=== PATIENT | female | born 1985 | race Caucasian/White ===

== ENCOUNTER → 2016-06-24 | Outpatient (CLI) | payer BC ==
[~2016-06-24] VITALS: Ht 162.6 cm; Wt 61.2 kg
[~2016-06-24] MED LIST: DICY10SO PO; EMOQTAB PO; LIDOCAINE 2% INJ 100 MG/5 ML SDV (FOR ANES.) As Ordered ONE; NS 1,000 ML IV SCH; PROPOFOL 200 MG/20 ML VIAL As Ordered ONE
--- NOTE | 2016-06-24 09:14 | ROOR ---
Patient Name: Elayne Meza Procedure Date: 06/24/2016 8:53 AM Date of : 1985 Age: 31 Room: [id number] Gender: Female Note Status: Finalized Procedure: Colonoscopy Indications: Generalized abdominal pain, Exclusion of ulcerative colitis, Suspected irritable bowel syndrome Providers: Husam CHARLES MD Referring MD: BERE Lopez Requesting Provider: Medicines: Monitored Anesthesia Care Complications: No immediate complications. Procedure: Pre-Anesthesia Assessment: - The heart rate, respiratory rate, oxygen saturations, blood pressure, adequacy of pulmonary ventilation, and response to care were monitored throughout the procedure. The Colonoscope was introduced through the anus and advanced to 5 cm into the ileum. The colonoscopy was performed without difficulty. The patient tolerated the procedure well. The quality of the bowel preparation was good. Findings: The perianal and digital rectal examinations were normal. The terminal ileum appeared normal. The colon appeared normal. Impression: - The perianal exam and examined portion of the ileum was normal. - The entire examined colon is normal. - No specimens collected. Recommendation: - Lactose free diet. - Use Bentyl (dicyclomine) 10 - 20 mg every 4-6 hrs as needed. - If lactose free diet not acceptable, you can purchase Lactase enzyme supplement (OTC). this is usually taken 20 minutes before each meal containing milk/dairy products. Husam Charles MD Husam CHARLES MD 06/24/2016 9:14:21 AM This report has been signed electronically. Number of Addenda: 0 Note Initiated On: 06/24/2016 8:53 AM Estimated Blood Loss: Estimated blood loss: none.
[2016-06-24 09:40] VITALS: BP 124/72
== END | disposition home or self-care (01) ==
LOC: M OPP 08:15
PROVIDERS: ATTEND Internal Medicine Gastroenterology
DX: R10.84 Generalized abdominal pain (principal); L40.9 Psoriasis, unspecified; Z79.899 Other long term (current) drug therapy

== ENCOUNTER → 2016-08-08 | Outpatient (REF) | payer BC ==
[~2016-08-08] MED LIST changes: -LIDOCAINE 2% INJ 100 MG/5 ML SDV (FOR ANES.) As Ordered ONE; -NS 1,000 ML IV SCH; -PROPOFOL 200 MG/20 ML VIAL As Ordered ONE
== END ==
LOC: M WUC 09:18
PROVIDERS: ATTEND Physician Assistant
DX: R30.0 Dysuria (principal)

== ENCOUNTER → 2016-12-21 | Outpatient (REF) | payer BC | LOC: M LAB REF 16:19 | PROVIDERS: ATTEND Physician Assistant | DX: R10.30 Lower abdominal pain, unspecified (principal) ==

== ENCOUNTER → 2018-02-22 | Outpatient (REF) | payer BC | LOC: M LAB REF 18:42 | DX: R53.83 Other fatigue (principal) ==

== ENCOUNTER → 2018-03-09 | Outpatient (REF) | payer BC ==
[2018-03-09 19:09] LABS: HEMATOCRIT 39.3 % (36.0-47.0); HEMOGLOBIN 12.9 g/dl (12.0-15.5); MEAN CORPUSCULAR HEMOGLOBIN 28.9 pg (27.0-33.0); MEAN CORPUSCULAR HGB CONC 32.8 g/dl (32.0-36.5); MEAN CORPUSCULAR VOLUME 88.1 fl (80.0-96.0); PLATELET COUNT, AUTOMATED 236 10^3/uL (150-450); RED BLOOD COUNT 4.46 10^6/uL (4.00-5.40); RED CELL DISTRIBUTION WIDTH 11.5 % (11.5-14.5); WHITE BLOOD COUNT 7.7 10^3/uL (4.0-10.0)
[2018-03-09 19:30] LABS: FREE T4 1.01 NG/DL (0.76-1.46)
[2018-03-09 19:42] LABS: CONTROL LINE HCG INT CTR LINE PRESENT; HCG, SERUM QUALITATIVE NEGATIVE (NEGATIVE)
== END ==
LOC: M SFHCADAM 14:32
DX: R53.83 Other fatigue (principal)
CPT/HCPCS: 84443

== ENCOUNTER → 2018-04-05 | Outpatient (REF) | payer BC ==
[2018-04-07 14:13] LABS: HPV HYBRID CAPTURE II Negative (Negative)
== END ==
LOC: M LAB REF 17:16
DX: Z12.4 Encounter for screening for malignant neoplasm of cervix (principal)
CPT/HCPCS: G0123

== ENCOUNTER → 2018-08-15 | Outpatient (REF) | payer BC | LOC: M LAB REF 12:12 | PROVIDERS: ATTEND Physician Assistant Medical | DX: J02.9 Acute pharyngitis, unspecified (principal) ==

== ENCOUNTER → 2018-09-30 | Outpatient (REF) | payer BC | LOC: M LAB REF 09:33 | PROVIDERS: ATTEND Physician Assistant | DX: R19.7 Diarrhea, unspecified (principal) ==

== ENCOUNTER → 2019-06-13 | Outpatient (CLI) | payer BC | LOC: M PLALAB 13:57 | PROVIDERS: ATTEND Advanced Practice Midwife | DX: Z36.89 Encounter for other specified antenatal screening (principal) ==

== ENCOUNTER → 2019-06-29 | Outpatient (REF) | payer BC | LOC: M LAB REF 17:44 | PROVIDERS: ATTEND Physician Assistant | DX: R30.0 Dysuria (principal) ==

== ENCOUNTER → 2019-07-05 | Outpatient (CLI) | payer BC ==
--- NOTE | 2019-07-05 14:20 | REP ---
Obstetric ultrasound for anatomy: There is a single intrauterine gestation in a breech presentation. There is movement and cardiac activity. The heart rate is 147 beats per minute. The placenta is anterior. There is no previa or abruptio. The placenta is grade zero. The amniotic fluid volume subjectively is normal. Cervix measures 5.2 cm. Gestational age by today's ultrasound is 20 weeks 5 days/NANCY 11/17/2019. Gestational age by LMP is 19 weeks 3 days/NANCY 11/26/2019. weight is 360 grams/0 pounds, 12 ounces. This is the 42nd percentile for 20 weeks 5 days. This is the 91st percentile for 19 weeks 3 days. The following anatomic structures are identified and are unremarkable: Cranium, choroid plexus, cavum septum pellucidum, cerebellum, facial profile, upper lip, lungs, four-chamber heart, cardiac right and left ventricular outflow tracts, diaphragm, stomach, cord insertion, three-vessel cord, kidneys, bladder, spine and upper lower extremities. No anomalies are identified. Electronically Signed by Julien Walker MD 07/05/2019 02:12 P
== END ==
LOC: M RAD 12:49
PROVIDERS: ATTEND Advanced Practice Midwife
DX: Z34.02 Encounter for supervision of normal first pregnancy, second trimester (principal)

== ENCOUNTER → 2019-07-10 | Outpatient (REF) | payer BC | LOC: M SFHCWAGY 16:48 | PROVIDERS: ATTEND Advanced Practice Midwife | DX: N39.0 Urinary tract infection, site not specified (principal) ==

== ENCOUNTER → 2019-09-02 | Outpatient (REF) | payer BC ==
[2019-09-02 17:36] LABS: HEMOGLOBIN 12.1 g/dl (12.0-15.5); MEAN CORPUSCULAR HEMOGLOBIN 29.4 pg (27.0-33.0); MEAN CORPUSCULAR HGB CONC 32.7 g/dl (32.0-36.5); PLATELET COUNT, AUTOMATED 224 10^3/uL (150-450); RED BLOOD COUNT 4.11 10^6/uL (4.00-5.40); WHITE BLOOD COUNT 8.5 10^3/uL (4.0-10.0)
== END ==
LOC: M PLALAB 14:44
PROVIDERS: ATTEND Obstetrics & Gynecology
DX: Z34.92 Encounter for supervision of normal pregnancy, unspecified, second trimester (principal)

== ENCOUNTER → 2019-10-30 | Outpatient (REF) | payer BC ==
[~2019-10-30] MED LIST changes: +ACET-683 PO; +IBUP80TA PO; +OXYC1TAB23 PO; +PRENTAB9 PO; +TUMS500C PO
== END ==
LOC: M PLALAB 15:32
PROVIDERS: ATTEND Advanced Practice Midwife
DX: Z34.03 Encounter for supervision of normal first pregnancy, third trimester (principal)

== ENCOUNTER 2019-11-12 14:09 | Inpatient (IN) | payer BC ==
[2019-11-12] VITALS (13 sets, daily range): BP systolic 124–180; BP diastolic 81–98
[~2019-11-12] VITALS: Ht 160 cm; Wt 82.4 kg
[~2019-11-12 14:09] MED LIST changes: -ACET-683 PO; -IBUP80TA PO; -OXYC1TAB23 PO; -PRENTAB9 PO; -TUMS500C PO
[2019-11-12] MEDS ORDERED: PRENTAB9 PO (14:36)
[2019-11-12] MEDS ORDERED: TUMS500C PO (14:36)
[2019-11-12] MEDS ORDERED: ACET-683 PO (14:37)
[2019-11-12 15:43] LABS: HEMATOCRIT 35.8 % (36.0-47.0); HEMOGLOBIN 11.6 g/dl (12.0-15.5); MEAN CORPUSCULAR HEMOGLOBIN 28.7 pg (27.0-33.0); MEAN CORPUSCULAR HGB CONC 32.4 g/dl (32.0-36.5); MEAN CORPUSCULAR VOLUME 88.6 fl (80.0-96.0); PLATELET COUNT, AUTOMATED 149 10^3/uL (150-450); RED BLOOD COUNT 4.04 10^6/uL (4.00-5.40); WHITE BLOOD COUNT 7.7 10^3/uL (4.0-10.0)
[2019-11-12 16:22] LABS: ALT/SGPT 21 U/L (12-78); BILIRUBIN,TOTAL 0.5 MG/DL (0.2-1.0); CREATININE FOR GFR 0.58 MG/DL (0.55-1.30); GLOMERULAR FILTRATION RATE > 60.0 (>60); LDH LACTATE DEHYDROGENASE 174 U/L (84-246); URIC ACID 5.5 MG/DL (2.6-6.0)
[2019-11-12] MEDS ORDERED: PENICILLIN G POTASSIUM IV 5 MU in D5W MINI-BAG PLUS 100 ML IV STA (17:55)
[2019-11-12] MEDS: miSOPROStol 50 MCG 1/2 TAB (S0191) SL SCH ×2 (18:55→23:00)
--- NOTE | 2019-11-12 21:14 | HPE ---
DATE OF ADMISSION: 11/12/2019 She is a 34-year-old, 2, para 0-0-1-0 female at 38-1/7 weeks gestation by an 8 week ultrasound, estimated date of confinement (EDC) of 11/25/2019 presents to the office for elevated blood pressures of 158/104. She denies headaches, blurred vision, or swelling. Over several checks, blood pressure stayed elevated. COURSE: The patient's care was in [facility] and her care was unremarkable. First trimester blood pressure was 120/70. MEDICAL HISTORY: 1. Abnormal pap smears. 2. Migraines. 3. Irritable bowel syndrome. SURGERIES: None. ALLERGIES: None. SOCIAL HISTORY: The patient lives in [place]. The father of the baby is involved. She denies cigarettes, alcohol, or drug use. FAMILY HISTORY: Noncontributory. PHYSICAL EXAMINATION: Blood pressure 165/98, pulse 84. No apparent distress. HEAD/NECK: Exam normal. LUNGS: Clear. HEART: Regular rate and rhythm. ABDOMEN: Nontender, gravid, heart tones category 1. STERILE VAGINAL EXAM: 1 cm, 50%, -2, posterior, vertex. EXTREMITIES: Nontender. LABORATORY DATA: Urine P/C ratio is 0.37. Labs otherwise normal. ASSESSMENT: 34-year-old, 2, para 0-0-0-1 female at 38-1/7 weeks gestation presents with preeclampsia. PLAN: The patient is admitted on 11/12/2019 for labor induction. Risks of induction were discussed.
[2019-11-12] MEDS ORDERED: PENICILLIN G POTASSIUM IV 2.5 MU in IV 1 EA IV SCH (22:00)
[2019-11-12] MEDS: ACETAMINOPHEN 500 MG TAB PO PRN (22:16)
[2019-11-13] VITALS (24 sets, daily range): BP systolic 122–140; BP diastolic 71–101
[2019-11-13] MEDS: miSOPROStol 50 MCG 1/2 TAB (S0191) SL SCH ×2 (03:00→10:25)
[2019-11-13] MEDS: ACETAMINOPHEN 500 MG TAB PO PRN (04:09)
[2019-11-13] MEDS ORDERED: LR 1,000 ML IV SCH (07:00)
[2019-11-13] MEDS ORDERED: **PENDING PCN ENTRY XX SCH (09:00)
[2019-11-13] MEDS ORDERED: OXYTOCIN DRIP 30 UNITS in IV 1 EA IV SCH (14:30)
[2019-11-13] MEDS: LR 1,000 ML IV SCH (17:11)
[2019-11-13] MEDS ORDERED: PENICILLIN G POTASSIUM 5 MU VIAL As Ordered ONE (17:51)
[2019-11-13] MEDS ORDERED: PENICILLIN G POTASSIUM IV 5 MU in D5W MINI-BAG PLUS 100 ML IV STA (18:17)
[2019-11-13] MEDS ORDERED: PROMETHAZINE INJ 25 MG/ML VIAL (J2550) IV ONE (22:30)
[2019-11-13] MEDS ORDERED: BUTORPHANOL 2 MG/ML INJ (J0595) IV ONE (22:30)
[2019-11-13] MEDS ORDERED: PENICILLIN G POTASSIUM IV 2.5 MU in IV 1 EA IV SCH (23:00)
[2019-11-14] VITALS (39 sets, daily range): BP systolic 110–159; BP diastolic 56–96
[2019-11-14] MEDS: PENICILLIN G POTASSIUM IV 2.5 MU in IV 1 EA IV SCH ×3 (05:00→13:23)
[2019-11-14 05:18] LABS: HEMATOCRIT 33.7 % (36.0-47.0); HEMOGLOBIN 10.9 g/dl (12.0-15.5); MEAN CORPUSCULAR HEMOGLOBIN 28.6 pg (27.0-33.0); MEAN CORPUSCULAR HGB CONC 32.3 g/dl (32.0-36.5); MEAN CORPUSCULAR VOLUME 88.5 fl (80.0-96.0); PLATELET COUNT, AUTOMATED 129 10^3/uL (150-450); RED BLOOD COUNT 3.81 10^6/uL (4.00-5.40); WHITE BLOOD COUNT 9.5 10^3/uL (4.0-10.0)
[2019-11-14] MEDS ORDERED: FENTANYL 2MCG/ML ROPIVACAINE 0.2% IN 0.9% NACL 100ML IVBAG As Ordered ONE (05:30)
[2019-11-14] MEDS: LR 1,000 ML IV SCH ×3 (05:45→21:26)
[2019-11-14] MEDS ORDERED: diphenhydrAMINE 50MG/ML VIAL (J1200) IV PRN ×2 (05:45→16:25)
[2019-11-14] MEDS ORDERED: NALOXONE INJ 0.4MG/1ML VIAL (J2310 PER 1MG) IV PRN ×3 (05:45→16:25)
[2019-11-14] MEDS ORDERED: EPIDURAL/PCA KEYS XX PRN (05:45)
[2019-11-14] MEDS ORDERED: ONDANSETRON 4MG/2ML VIAL IV PRN ×4 (05:45→17:00)
[2019-11-14] MEDS ORDERED: REFRIGERATOR IV KEYS XX PRN (05:45)
[2019-11-14] MEDS ORDERED: ePHEDrine SULFATE 25 MG/5 ML(5MG/ML) SYRINGE IV PRN (05:45)
[2019-11-14] MEDS: FENTANYL/ROPIVACAINE/NACL BAG 100 ML EPIDURAL SCH ×2 (05:45→13:14)
[2019-11-14] MEDS ORDERED: LACTATED RINGER'S 1000 ML IV PRN (05:45)
[2019-11-14] MEDS ORDERED: EPIDURAL COMMENT XX SCH (05:45)
[2019-11-14] MEDS ORDERED: BICITRA 30ML SOLN UDC As Ordered ONE (15:04)
[2019-11-14] MEDS ORDERED: ceFAZolin 2 GM/D5W 50 ML IV BAG (J0690 PER 500MG) As Ordered ONE (15:04)
[2019-11-14] MEDS ORDERED: ceFAZolin SOD 2 GM in IV 1 EA IV ONE (15:30)
[2019-11-14] MEDS ORDERED: BICITRA 30ML SOLN UDC PO ONE (15:30)
[2019-11-14] MEDS ORDERED: LIDOCAINE 2% W/EPINEPHRINE 20ML VIAL **PRES FREE As Ordered ONE (15:37)
[2019-11-14] MEDS ORDERED: OXYTOCIN INJ 10 UNITS/ML VIAL (J2590) As Ordered ONE ×3 (15:40→16:07)
[2019-11-14] MEDS ORDERED: ONDANSETRON 4MG/2ML VIAL As Ordered ONE (16:05)
[2019-11-14] MEDS ORDERED: MORPHINE PRES-FREE INJ 10 MG/10 ML VIAL (J2274) As Ordered ONE (16:05)
[2019-11-14] MEDS ORDERED: KETOROLAC 60MG 2ML VIAL As Ordered ONE (16:05)
[2019-11-14] MEDS ORDERED: PHENYLephrine HCL 500 MCG/5 ML (100MCG/ML) SYRINGE (J2370) As Ordered ONE (16:11)
[2019-11-14] MEDS ORDERED: METOCLOPRAMIDE INJ 10MG/2ML VIAL (J2765 PER 1) IV PRN (16:25)
[2019-11-14] MEDS ORDERED: NALBUPHINE HCL 10 MG/ML AMP (J2300) IV PRN ×2 (16:25→17:00)
[2019-11-14] MEDS ORDERED: OXYTOCIN DRIP 30 UNITS in IV 1 EA IV SCH (16:35)
[2019-11-14] MEDS ORDERED: PERCOCET 5MG/325MG TAB PO PRN ×2 (16:45)
[2019-11-14] MEDS ORDERED: RHOGAM 300 MCG (1500 IU) INJ (J2790) IM SCH (16:45)
[2019-11-14] MEDS ORDERED: DOCUSATE SODIUM 100 MG CAP PO PRN (16:45)
[2019-11-14] MEDS ORDERED: MEASLES,MUMPS,RUBELLA VACCINE INJ (MMR-II) (90707) SC SCH (16:45)
[2019-11-14] MEDS ORDERED: OXYTOCIN 30 UNITS IN 0.9% NaCl 500ML IV BAG (J2590) As Ordered ONE (16:59)
[2019-11-14] MEDS ORDERED: LR 1,000 ML IV SCH (17:00)
[2019-11-14] MEDS ORDERED: KETOROLAC 30 MG/ML 1ML VIAL IV SCH (17:00)
[2019-11-14] MEDS ORDERED: fentaNYL 100 MCG/2 ML INJECTION (J3010) As Ordered ONE (17:00)
[2019-11-14] MEDS: fentaNYL 100 MCG/2 ML INJECTION (J3010) IV PRN ×4 (17:07→17:34)
[2019-11-14] MEDS: KETOROLAC 30 MG/ML 1ML VIAL IV SCH (22:27)
[2019-11-15] MEDS: LR 1,000 ML IV SCH ×3 (00:35→16:35)
[2019-11-15 02:00] VITALS: BP 128/81
[2019-11-15 05:21] VITALS: BP 135/88
[2019-11-15] MEDS: KETOROLAC 30 MG/ML 1ML VIAL IV SCH ×2 (05:21→10:56)
[2019-11-15] MEDS ORDERED: OXYC1TAB23 PO (07:51)
[2019-11-15] MEDS ORDERED: IBUP80TA PO (07:53)
[2019-11-15] MEDS: PRENATAL VITAMINS CHEWABLE TABLET PO SCH (08:05)
[2019-11-15 09:40] LABS: HEMATOCRIT 31.1 % (36.0-47.0); HEMOGLOBIN 10.1 g/dl (12.0-15.5); MEAN CORPUSCULAR HEMOGLOBIN 28.9 pg (27.0-33.0); MEAN CORPUSCULAR HGB CONC 32.5 g/dl (32.0-36.5); MEAN CORPUSCULAR VOLUME 88.9 fl (80.0-96.0); PLATELET COUNT, AUTOMATED 135 10^3/uL (150-450); WHITE BLOOD COUNT 10.5 10^3/uL (4.0-10.0)
[2019-11-15 10:00] VITALS: BP 118/70
[2019-11-15 14:00] VITALS: BP 123/77
[2019-11-15 18:00] VITALS: BP 133/82
[2019-11-15] MEDS: IBUPROFEN 800 MG TAB PO SCH (18:33)
[2019-11-15 22:00] VITALS: BP 145/79
[2019-11-16 02:00] VITALS: BP 140/71
[2019-11-16] MEDS: IBUPROFEN 800 MG TAB PO SCH ×2 (03:57→10:54)
[2019-11-16 06:00] VITALS: BP 143/84
[2019-11-16] MEDS: PRENATAL VITAMINS CHEWABLE TABLET PO SCH (08:11)
--- NOTE | 2019-11-16 08:47 | DS.PDOC ---
Discharge Summary General Date of Admission Nov 12, 2019 at 16:54 Date of Discharge November 16, 2019 Discharge Summary PROCEDURES PERFORMED DURING STAY: Primary section. ADMITTING DIAGNOSES: 1. Preeclampsia for induction at 38weeks. DISCHARGE DIAGNOSES: 1. Primary section for arrest of dilation. COMPLICATIONS/CHIEF COMPLAINT: LABOR. HISTORY OF PRESENT ILLNESS: 34yo G2 now P1011 [address] Mcguire 11/12/2019 @ 38w1d for induction due to severe preeclampsia. A primary section was performed 11/14/2019 for arrest of dilation. HOSPITAL COURSE: Ambulating. Tolerating regular diet. Adequate pain management. Voiding and passing flatus.. DISCHARGE MEDICATIONS: Please see below. ALLERGIES: Please see below. PHYSICAL EXAMINATION ON DISCHARGE: VITAL SIGNS: Please see below. GENERAL: No distress HEENT: WNL NECK: Supple CARDIOVASCULAR EXAMINATION: HRR, normotensive RESPIRATORY EXAMINATION: Clear and unlabored ABDOMINAL EXAMINATION: Fundus firm, optifoam intact EXTREMITIES: Equal strength and motion SKIN: Intact NEUROLOGICAL EXAMINATION: Grossly intact PSYCHIATRIC EXAMINATION: Appropriate LABORATORY DATA: Please see below. PROGNOSIS: Good ACTIVITY: As tolerated. DIET: As tolerated DISCHARGE PLAN: Home DISPOSITION: Home with family. DISCHARGE INSTRUCTIONS: 1. Routine care and precautions. Pelvic rest. Oral medications as ordered. Call office with fever, nausea, vomiting, chills, severe headache, wound exudate or foul lochia. DISCHARGE CONDITION: Stable. TIME SPENT ON DISCHARGE: Greater than 10 minutes. Vital Signs/I&Os Vital Signs Date Time Temp Pulse Resp B/P (MAP) Pulse Ox O2 Delivery O2 Flow Rate FiO2 11/16/19 06:00 97.7 92 18 143/84 (103) 11/15/19 22:00 97 Room Air I&O- Last 24 Hours up to 6 AM 11/16/19 05:59 Output Total 1650 ml Balance -1650 ml Laboratory Data Labs 24H Laboratory Tests 2 11/15/19 08:55: Nucleated Red Blood Cells % (auto) 0.0 CBC/BMP Laboratory Tests 11/15/19 08:55 Discharge Medications Scheduled Ibuprofen (Ibuprofen) 800 Mg Tablet, 800 MG PO Q8H No.137/Iron/Folic Acd ( Vitamin Tablet) 1 Each Tablet, 1 TAB PO DAILY, (Reported) Scheduled PRN Acetaminophen (Acetaminophen) 500 Mg Tablet, 1 TAB PO Q6H PRN for PAIN OR FEVER, (Reported) Calcium Carbonate (Tums) 200 Mg Tab.chew, 1,000 MG PO PRN PRN for HEARTBURN, (Reported) Oxycodone HCl/Acetaminophen (Oxycodone-Acetaminophen 5-325) 1 Each Tablet, 1 TAB PO TIDP PRN for pain Allergies Coded Allergies: No Known Allergies (Unverified , 06/23/16) Yesi Alcantara CNM Nov 16, 2019 08:47
[2019-11-16 10:00] VITALS: BP 131/75
--- NOTE | 2019-11-21 17:57 | RO ---
DATE OF PROCEDURE: 11/14/2019 PREPROCEDURE DIAGNOSIS: 38 weeks gestation, preeclampsia, arrest of dilation. POSTPROCEDURE DIAGNOSIS: 38 weeks gestation, preeclampsia, arrest of dilation. PROCEDURE: Primary low transverse section. SURGEON: Mohit Mcguire MD ELECTRO MECHANICAL DESIGNER: Jani Simmons MD ANESTHESIA: Epidural. ESTIMATED BLOOD LOSS: 600 mL. URINE OUTPUT: 20 mL. IV FLUIDS: 1000 mL lactated Ringer's (LR). FINDINGS: 6 pound 12 ounce, 3060 gram male infant. scores 8 and 9. Normal uterus, fallopian tubes, ovaries. DESCRIPTION OF PROCEDURE: The patient was taken to the operating room where epidural anesthesia was adequate. A Sandoval catheter was already in place. A Pfannenstiel skin incision was made with a scalpel and carried through to the fascia. The fascia was nicked and extended. The fascia was dissected off the rectus muscles, the peritoneal cavity was entered. Bladder flap was created. A Mobius retractor was placed. A curvilinear incision was made in the lower uterine segment until clear fluid was noted. This was extended manually. was delivered from the vertex position without difficulty. The cord was doubly clamped and cut. The infant was handed off to awaiting nurses. The placenta was expressed. The uterus was cleared of clots and debris. The uterus was closed with #0 Vicryl in a running locked fashion. A second imbricating layer of #0 Vicryl was placed. The uterus was placed back in the abdominal cavity. The peritoneum was closed with #2-0 Vicryl in a running fashion. The fascia was closed with #0 Vicryl. Deep layer was irrigated and closed with #2-0 chromic. Skin was closed with #4-0 Monocryl subcuticular sutures. Sponge, instrument, and needle counts were correct.
== END 2019-11-16 13:40 | disposition home or self-care (01) | DRG 540 ==
LOC: M LDO 14:09 → M LDI 16:54 → M OBS 11-14 17:56
PROVIDERS: ADMIT Specialist; ATTEND Specialist
PROC: 3E0P7GC Introduction of Other Therapeutic Substance into Female Reproductive, Via Natural or Artificial Opening (ICD-10-PCS; 2019-11-13)
PROC: 10D00Z1 Extraction of Products of Conception, Low, Open Approach (ICD-10-PCS; principal; 2019-11-14 15:41)
DX: O14.94 Unspecified pre-eclampsia, complicating childbirth (principal); Z3A.38 38 weeks gestation of pregnancy; O62.0 Primary inadequate contractions; Z37.0 Single live birth; K58.0 Irritable bowel syndrome with diarrhea; O99.62 Diseases of the digestive system complicating childbirth

== ENCOUNTER → 2020-07-31 | Outpatient (CLI) | payer BC ==
[~2020-07-31] MED LIST changes: +ACET-683 PO; +IBUP80TA PO; +OXYC1TAB23 PO; +PRENTAB9 PO; +TUMS500C PO
--- NOTE | 2020-07-31 10:38 | REP ---
INDICATION: PAIN IN LEFT SHOULDER. COMPARISON: None. TECHNIQUE: Three views of the left shoulder are provided. FINDINGS: The left glenohumeral and acromioclavicular joints are normally aligned. Periarticular soft tissues are unremarkable. The visualized left hemithorax appears intact. There is small subcortical cyst in the superolateral humeral head. IMPRESSION: No acute abnormality. <Electronically signed by Rigo Vásquez > 07/31/20 [id number]
== END ==
LOC: M ADAMS 08:05
PROVIDERS: ATTEND Physician Assistant Medical
DX: M25.512 Pain in left shoulder (principal)

== ENCOUNTER → 2021-05-25 | Outpatient (REF) | payer BC | LOC: M SFHCWAGY 19:11 | PROVIDERS: ATTEND Specialist | DX: Z12.4 Encounter for screening for malignant neoplasm of cervix (principal) ==

== ENCOUNTER 2021-10-06 23:34 | Emergency (ER) | payer BC ==
[~2021-10-06] VITALS: Ht 160 cm; Wt 64.7 kg
[2021-10-07 00:11] LABS: BILIRUBIN, URINE MANUAL OBSCURED (NEGATIVE); GLUCOSE, URINE (UA) MANUAL OBSCURED mg/dL (NEGATIVE); KETONE, URINE MANUAL OBSCURED mg/dL (NEGATIVE); UROBILINOGEN, URINE MANUAL OBSCURED mg/dl (NORMAL)
[2021-10-07 00:14] LABS: BACTERIA, URINE SMALL AMOUNT; HYALINE CAST, URINE NONE SEEN /lpf (0-1); RBC, URINE TNTC /hpf (0-3); SQUAMOUS EPITHELIAL CELL URINE SMALL AMOUNT /hpf (SMALL AMT); TRANSITIONAL EPI CELLS, URINE SMALL AMOUNT /hpf
[2021-10-07 03:38] VITALS: BP 127/79
== END 2021-10-07 05:01 | disposition left against medical advice (07) ==
LOC: M ED 23:34
DX: Z53.29 Procedure and treatment not carried out because of patient's decision for other reasons (principal)

== ENCOUNTER → 2021-10-13 | Outpatient (REF) | payer BC | LOC: M WUC 20:14 | PROVIDERS: ATTEND Physician Assistant | DX: N39.0 Urinary tract infection, site not specified (principal) ==

== ENCOUNTER → 2021-12-22 | Outpatient (CLI) | payer BC | LOC: M PLALAB 08:40 | PROVIDERS: ATTEND Specialist | DX: Z34.81 Encounter for supervision of other normal pregnancy, first trimester (principal) ==

== ENCOUNTER → 2022-02-10 | Outpatient (CLI) | payer BC | LOC: M RAD 07:22 | PROVIDERS: ATTEND Specialist | DX: Z36.89 Encounter for other specified antenatal screening (principal); Z3A.19 19 weeks gestation of pregnancy ==

== ENCOUNTER → 2022-03-08 | Outpatient (CLI) | payer BC ==
[2022-03-08 13:06] LABS: BASO % 0.3 % (0.0-1.0); EOS # 0.2 10^3/uL (0.0-0.5); EOS % 2.7 % (0.0-3.0); HEMATOCRIT 33.7 % (36.0-47.0); LYMPH # 0.9 10^3/uL (1.5-5.0); LYMPH % 13.8 % (24.0-44.0); MEAN CORPUSCULAR HEMOGLOBIN 29.8 pg (27.0-33.0); MEAN CORPUSCULAR HGB CONC 32.6 g/dl (32.0-36.5); MEAN CORPUSCULAR VOLUME 91.3 fl (80.0-96.0); MONO # 0.4 10^3/uL (0.0-0.8); MONO % 6.1 % (2.0-8.0); NEUTROPHILS # 4.9 10^3/uL (1.5-8.5); NEUTROPHILS % 76.5 % (36.0-66.0); PLATELET COUNT, AUTOMATED 184 10^3/uL (150-450); RED BLOOD COUNT 3.69 10^6/uL (4.00-5.40); WHITE BLOOD COUNT 6.4 10^3/uL (4.0-10.0)
[2022-03-08 14:31] LABS: HIV 1&2 SCREEN CENTAUR NEGATIVE (NEGATIVE)
[2022-03-08 14:55] LABS: GC DNA AMPLIFICATION NEGATIVE (NEGATIVE)
== END ==
LOC: M LABDRWAD 08:26
PROVIDERS: ATTEND Specialist
DX: Z36.89 Encounter for other specified antenatal screening (principal)

== ENCOUNTER → 2022-04-13 | Outpatient (CLI) | payer BC ==
[2022-04-13 15:17] LABS: HEMATOCRIT 37.4 % (36.0-47.0); HEMOGLOBIN 11.9 g/dl (12.0-15.5); MEAN CORPUSCULAR HEMOGLOBIN 29.2 pg (27.0-33.0); MEAN CORPUSCULAR HGB CONC 31.8 g/dl (32.0-36.5); MEAN CORPUSCULAR VOLUME 91.9 fl (80.0-96.0); PLATELET COUNT, AUTOMATED 205 10^3/uL (150-450); RED BLOOD COUNT 4.07 10^6/uL (4.00-5.40); WHITE BLOOD COUNT 6.6 10^3/uL (4.0-10.0)
[2022-04-13 16:19] LABS: GC DNA AMPLIFICATION NEGATIVE (NEGATIVE)
== END ==
LOC: M PLALAB 08:30
PROVIDERS: ATTEND Obstetrics & Gynecology
DX: Z34.82 Encounter for supervision of other normal pregnancy, second trimester (principal)

== ENCOUNTER → 2022-05-12 | Outpatient (REF) | payer BC | LOC: M SFHCWAGY 10:20 | PROVIDERS: ATTEND Obstetrics & Gynecology | DX: Z34.83 Encounter for supervision of other normal pregnancy, third trimester (principal) ==

== ENCOUNTER → 2022-05-18 | Outpatient (CLI) | payer BC | LOC: M RAD 06:39 | PROVIDERS: ATTEND Obstetrics & Gynecology | DX: O26.849 Uterine size-date discrepancy, unspecified trimester (principal); Z3A.32 32 weeks gestation of pregnancy ==

== ENCOUNTER → 2022-06-07 | Outpatient (REF) | payer BC | LOC: M SFHCWAGY 16:48 | PROVIDERS: ATTEND Specialist | DX: Z36.85 Encounter for antenatal screening for Streptococcus B (principal) ==

== ENCOUNTER 2022-06-23 08:49 | Outpatient (CLI) | payer BC ==
[~2022-06-23] VITALS: Ht 162.6 cm; Wt 78.8 kg
[2022-06-23] VITALS (12 sets, daily range): BP systolic 120–147; BP diastolic 76–90
[2022-06-23 10:35] LABS: HEMATOCRIT 34.1 % (36.0-47.0); HEMOGLOBIN 11.2 g/dl (12.0-15.5); MEAN CORPUSCULAR HEMOGLOBIN 28.9 pg (27.0-33.0); MEAN CORPUSCULAR HGB CONC 32.8 g/dl (32.0-36.5); MEAN CORPUSCULAR VOLUME 87.9 fl (80.0-96.0); PLATELET COUNT, AUTOMATED 144 10^3/uL (150-450); RED BLOOD COUNT 3.88 10^6/uL (4.00-5.40); WHITE BLOOD COUNT 8.1 10^3/uL (4.0-10.0)
[2022-06-23 10:57] LABS: URIC ACID 5.9 MG/DL (3.1-7.8)
[2022-06-23 10:59] LABS: LDH LACTATE DEHYDROGENASE 165 U/L (120-246)
[2022-06-23 11:00] LABS: CREATININE,RANDOM URINE 101.9 MG/DL
[2022-06-23 11:01] LABS: ALT/SGPT 19 U/L (7.0-40); AST/SGOT 20 U/L (<34); BILIRUBIN,TOTAL 0.8 MG/DL (0.3-1.2); CREATININE FOR GFR 0.52 MG/DL (0.55-1.30); GLOMERULAR FILTRATION RATE > 60.0 (>60)
[2022-06-23] MEDS ORDERED: PRENTAB9 PO (11:01)
[2022-06-23] MEDS ORDERED: HOME MED LIST COMPLETE! XX SCH (11:25)
== END 2022-06-23 13:55 | disposition home or self-care (01) ==
LOC: M LDO 08:49
PROVIDERS: ATTEND Obstetrics & Gynecology
DX: O13.3 Gestational [pregnancy-induced] hypertension without significant proteinuria, third trimester (principal); O34.219 Maternal care for unspecified type scar from previous cesarean delivery; Z87.59 Personal history of other complications of pregnancy, childbirth and the puerperium; Z3A.37 37 weeks gestation of pregnancy
CPT/HCPCS: 36415; 59025; 82247; 82565; 82570; 83615; 84156; 84450; 84460; 84550; 85027; 87635; G0463

== ENCOUNTER → 2022-11-17 | Outpatient (REF) | payer BC | LOC: M PLALAB 14:19 | PROVIDERS: ATTEND Obstetrics & Gynecology | DX: Z12.4 Encounter for screening for malignant neoplasm of cervix (principal) | CPT/HCPCS: 87624; G0123 ==

== ENCOUNTER → 2023-04-27 | Outpatient (REF) | payer BC | LOC: M SFHCADAM 13:10 | PROVIDERS: ATTEND Physician Assistant | DX: J06.9 Acute upper respiratory infection, unspecified (principal) ==

== ENCOUNTER → 2023-05-16 | Outpatient (REF) | payer BC ==
[2023-05-16 13:36] LABS: BASO % 0.6 % (0.0-1.0); EOS # 0.1 10^3/uL (0.0-0.5); EOS % 1.9 % (0.0-3.0); HEMATOCRIT 40.7 % (36.0-47.0); MEAN CORPUSCULAR HEMOGLOBIN 28.4 pg (27.0-33.0); MEAN CORPUSCULAR HGB CONC 31.9 g/dl (32.0-36.5); MEAN CORPUSCULAR VOLUME 89.1 fl (80.0-96.0); MONO # 0.4 10^3/uL (0.0-0.8); MONO % 5.8 % (2.0-8.0); NEUTROPHILS # 4.9 10^3/uL (1.5-8.5); NEUTROPHILS % 76.5 % (36.0-66.0); PLATELET COUNT, AUTOMATED 202 10^3/uL (150-450); RED BLOOD COUNT 4.57 10^6/uL (4.00-5.40); WHITE BLOOD COUNT 6.3 10^3/uL (4.0-10.0)
[2023-05-16 14:09] LABS: ALBUMIN 4.3 G/DL (3.2-5.2); ALKALINE PHOSPHATASE 58 U/L (46-116); ALT/SGPT 13 U/L (7.0-40); AST/SGOT 8 U/L (<34); BILIRUBIN,TOTAL 1.3 MG/DL (0.3-1.2); BLOOD UREA NITROGEN 11 MG/DL (9-23); CALCIUM LEVEL 9.1 MG/DL (8.5-10.1); CARBON DIOXIDE LEVEL 27 MMOL/L (20-31); CHLORIDE LEVEL 109 MMOL/L (98-107); CREATININE FOR GFR 0.61 MG/DL (0.55-1.30); GLOMERULAR FILTRATION RATE > 60.0 (>60); GLUCOSE, FASTING 98 MG/DL (60-100); POTASSIUM SERUM 4.1 MMOL/L (3.5-5.1); SODIUM LEVEL 144 MMOL/L (136-145); TOTAL PROTEIN 6.8 G/DL (5.7-8.2)
[2023-05-16 14:11] LABS: THYROID STIMULATING HORMONE 0.938 uIU/ML (0.55-4.78)
[2023-05-16 14:12] LABS: FREE T4 1.27 NG/DL (0.89-1.76)
== END ==
LOC: M SFHCADAM 08:12
PROVIDERS: ATTEND Physician Assistant Medical
DX: F41.1 Generalized anxiety disorder (principal)

== ENCOUNTER → 2024-02-22 | Outpatient (CLI) | payer BC ==
[2024-02-22 10:49] LABS: BASO % 0.6 % (0.0-1.0); EOS # 0.2 10^3/uL (0.0-0.5); HEMATOCRIT 39.6 % (36.0-47.0); HEMOGLOBIN 12.6 g/dl (12.0-15.5); MEAN CORPUSCULAR HEMOGLOBIN 28.6 pg (27.0-33.0); MEAN CORPUSCULAR HGB CONC 31.8 g/dl (32.0-36.5); MONO # 0.4 10^3/uL (0.0-0.8); MONO % 6.8 % (2.0-8.0); NEUTROPHILS # 3.7 10^3/uL (1.5-8.5); NEUTROPHILS % 70.4 % (36.0-66.0); PLATELET COUNT, AUTOMATED 173 10^3/uL (150-450); WHITE BLOOD COUNT 5.3 10^3/uL (4.0-10.0)
[2024-02-22 10:51] LABS: PERCENT SATURATION 16.4 % (13.2-45.0)
[2024-02-22 10:54] LABS: FERRITIN 13.7 NG/ML (7.3-270.7); THYROID STIMULATING HORMONE 1.968 uIU/ML (0.55-4.78)
[2024-02-22 10:55] LABS: TOTAL 25(OH) VITAMIN D 26.9 NG/ML (20.0-100.0)
[2024-02-22 10:56] LABS: FOLATE 13.3 NG/ML (>5.4); FREE T4 1.18 NG/DL (0.89-1.76)
== END ==
LOC: M PLALAB 08:05
PROVIDERS: ATTEND Physician Assistant Medical
DX: R53.83 Other fatigue (principal); T14.8XXA Other injury of unspecified body region, initial encounter

== ENCOUNTER → 2024-07-04 | Outpatient (REF) | payer BC ==
[2024-07-04 16:10] LABS: FREE T4 1.18 NG/DL (0.89-1.76); THYROID STIMULATING HORMONE 1.605 uIU/ML (0.55-4.78)
== END ==
LOC: M SFHCADAM 08:34
PROVIDERS: ATTEND Physician Assistant Medical
DX: E01.0 Iodine-deficiency related diffuse (endemic) goiter (principal)

== ENCOUNTER → 2024-07-18 | Outpatient (CLI) | payer BC | LOC: M RAD 07:49 | PROVIDERS: ATTEND Physician Assistant Medical | DX: E01.0 Iodine-deficiency related diffuse (endemic) goiter (principal) ==

== ENCOUNTER → 2024-07-29 | Outpatient (CLI) | payer BC | LOC: M ADAMS 13:24 | PROVIDERS: ATTEND Physician Assistant Medical | DX: R05.3 Chronic cough (principal) ==

== ENCOUNTER → 2024-08-21 | Outpatient (CLI) | payer BC | LOC: M CARPUL 09:33 | PROVIDERS: ATTEND Physician Assistant Medical | DX: R05.3 Chronic cough (principal) ==

== ENCOUNTER → 2025-02-06 | Outpatient (REF) | payer BC | LOC: M LAB REF 17:24 | PROVIDERS: ATTEND Nurse Practitioner Family | DX: R30.0 Dysuria (principal) ==